=== PATIENT | female | born 1965 | race Caucasian/White ===

== ENCOUNTER 2017-05-09 12:19 | Observation (INO) ==
--- NOTE | 2017-05-09 13:29 | Emergency Department Note ---
Disposition Clinical Impression: Acute cholecystitis Disposition: Admitted As Inpatient Condition: Good Referrals: Yousif Dudley MD [Primary Care Provider] - Forms: Work/School Release, ED Satisfaction Letter Abdominal Pain HPI - General Chief Complaint: ED Abdominal Pain Stated Complaint: RUQ Pain seen at [facility] yesterday Time Seen by Provider: 05/09/17 13:06 Source: patient Nursing Notes Reviewed: Yes Vital Signs Reviewed: Yes - History of Present Illness Pt Subjective Complaint: abdominal pain Onset (ago): day(s) (2) Consistency: constant Location: RUQ Pain Scale: 8 Quality: stabbing, sharp Radiation: none Migration to: no migration Improves with: nothing Worsens with: nothing Associated symptoms: Reports: nausea, vomiting. Denies: fever Treatments prior to arrival: prescription analgesics - Related Data Previous Rx's Medication Instructions Recorded HYDROcodone/Acet 5/325 mg [[place] 1 tab PO Q6H PRN #5 tab 05/08/17 5-325 mg] Ondansetron [Zofran ODT] 8 mg SL Q4HR PRN #10 tab.rapdis 05/08/17 Allergies Allergy/AdvReac Type Severity Reaction Status Date / Time No Known Allergies Allergy Verified 05/08/17 13:48 All systems ED: reviewed and negative except as stated. Constitutional: Denies: chills Gastrointestinal: Reports: nausea, vomiting. Denies: hematochezia Abdominal Pain PMH - Past Medical History Medical history: Reports: no medical history Female Surgical History: Reports: hysterectomy Psychiatric history: Reports: no psych history - Social History Smoking status: Current every day smoker Alcohol use: Reports: none Drug use: Reports: none Physical Exam - General Limitations: no limitations General appearance: alert - Head Head exam: atraumatic, normocephalic, normal inspection - Eye Eye exam: Present: normal appearance, PERRL, EOMI - Expanded Eye Exam Pupils: Left: reactive - ENT ENT exam: normal exam, normal oropharynx, mucous membranes moist - Expanded ENT Exam External ear exam: Present: normal external inspection Mouth exam: Present: normal external inspection Teeth exam: Present: normal inspection Throat exam: Present: normal inspection - Neck Neck exam: Present: normal inspection, full ROM, trachea midline - Chest Chest inspection: Present: normal inspection, symmetric chest wall rise - Respiratory Respiratory exam: Present: normal lung sounds bilaterally - Cardiovascular Cardiovascular exam: Present: regular rate, normal rhythm, normal heart sounds - Abdominal Exam Abdominal exam: Present: soft, normal bowel sounds. Absent: distention Abdominal tenderness: Present: RUQ, moderate - Extremities Exam Extremities exam: Present: normal inspection, full ROM. Absent: tenderness, pedal edema - Expanded Upper Extremity Exam Shoulder exam: Present: normal inspection, full ROM Arm exam: Present: normal inspection, full ROM Elbow exam: Present: normal inspection, full ROM Forearm/Wrist exam: Present: normal inspection, full ROM Hand exam: Present: normal inspection, full ROM Vascular exam: Normal: capillary refill, radial pulse - Expanded Lower Extremity Exam Hip/Pelvis exam: Present: normal inspection, full ROM Upper leg exam: Present: normal inspection, full ROM Knee exam: Present: normal inspection, full ROM Lower leg exam: Present: normal inspection, full ROM Ankle exam: Present: normal inspection, full ROM Foot/toe exam: Present: normal inspection, full ROM Neurovascular/Tendon exam: Absent: motor deficit, sensory deficit, tendon deficit - Back Exam Back exam: Present: normal inspection, full ROM. Absent: tenderness - Neurological Exam Neurological exam: Present: alert, oriented X3 - Expanded Neurological Exam Patient oriented to: Present: person, place, time Coma Scale Eye Opening: Spontaneous Coma Scale Motor Response: Obeys Commands Coma Scale Verbal Response: Oriented Coma Scale Total: 15 - Psychiatric Psychiatric exam: Present: normal affect, normal mood - Skin Skin exam: Present: warm, dry, intact, normal color Course Vital Signs Temperature 98.2 F 05/09/17 12:45 Pulse Rate 92 05/09/17 12:45 Respiratory Rate 18 05/09/17 12:45 Blood Pressure 144/78 05/09/17 12:45 O2 Sat by Pulse Oximetry 96 05/09/17 12:45 Temperature 98.2 F 05/09/17 12:45 Pulse Rate 95 05/09/17 14:35 Respiratory Rate 18 05/09/17 14:35 Blood Pressure 155/74 05/09/17 14:35 O2 Sat by Pulse Oximetry 98 05/09/17 14:35 Oxygen Delivery Oxygen Delivery Room Air Abdominal Pain - Differential Diagnosis Differential Diagnosis: Likely: acute appendicitis, calculus of kidney, diverticulitis - Lab Data Result diagrams: 05/09/17 13:46 05/09/17 13:46 Lab Results 05/09/17 05/09/17 05/09/17 Range/Units 13:25 13:46 13:46 WBC 22.6 H D (4.3-11.1) K/mcL RBC 4.96 (3.82-4.97) M/mcL Hgb 15.3 (11.5-15.4) g/dL Hct 44.0 (35.3-44.9) % MCV 88.7 (83.0-100.0) fL MCH 30.8 (28.0-33.3) pg MCHC 34.8 (31.6-35.5) g/dL RDW 12.9 (11.5-14.5) % Plt Count 284 (140-400) K/mcL MPV 10.0 (9.4-12.4) fL Immature Gran % 0.4 (0-4) % Seg Neutrophils % 88.5 % Lymphocytes % 4.8 % Monocytes % 6.2 % Eosinophils % 0.0 % Basophils % 0.1 % Neutrophils # 20.0 H (1.6-8.9) K/mcL Lymphocytes # 1.1 (0.6-4.6) K/mcL Monocytes # 1.4 H (0.0-1.3) K/mcL Eosinophils # 0.0 (0.0-0.6) K/mcL Basophils # 0.0 (0.0-0.2) K/mcL PT 12.6 H (9.4-12.1) Seconds INR 1.2 APTT 28.2 (26.0-36.0) Seconds Sodium (136-145) mEq/L Potassium (3.5-4.5) mEq/L Chloride (98-109) mEq/L Carbon Dioxide (19-29) mEq/L BUN (7-20) mg/dL Creatinine (0.57-1.11) mg/dL Est GFR ( Amer) (> 60) Est GFR (Non-Af Amer) (> 60) BUN/Creatinine Ratio (6-26) Glucose (70-99) mg/dL Calculated Osmolality (280-300) Lactic Acid (0.5-2.2) mmol/L Calcium (8.6-10.8) mg/dL Total Bilirubin (0.2-1.2) mg/dL Direct Bilirubin (0.0-0.5) mg/dL Indirect Bilirubin (0.0-1.2) mg/dL AST (5-34) Units/L ALT (0-55) Units/L Alkaline Phosphatase (38-126) Units/L Serum Total Protein (6.0-8.3) g/dL Albumin (3.5-5.0) g/dL Globulin (2.4-3.5) g/dL Albumin/Globulin Ratio (1.1-2.2) Amylase (25-125) Units/L Lipase (8-78) Units/L Urine Color Yellow (Yellow) Urine Clarity Clear (Clear) Urine pH 6.5 (5.0-8.0) pH Units Ur Specific [place] 1.024 (1.010-1.025) Urine Protein 30 H (Neg-Trace) mg/dL Urine Glucose (UA) 100 H (Normal) mg/dL Urine Ketones 40 H (Negative) mg/dL Urine Blood Small H (Negative) Urine Nitrite Negative (Negative) Urine Bilirubin Negative (Negative) Urine Urobilinogen Normal (Normal) mg/dL Ur Leukocyte Esterase Negative (Negative) Urine Microscopic RBC 5-15 H (0-3) per hpf Urine Microscopic WBC 0-3 (0-3) per hpf Ur Squamous Epith Cells Many H (None-Few) per lpf Urine Bacteria Few (None-Few) per hpf Hyaline Casts None Seen (None-Few) per lpf Ur Culture Indicated? NO (NO) 05/09/17 05/09/17 Range/Units 13:46 13:46 WBC (4.3-11.1) K/mcL RBC (3.82-4.97) M/mcL Hgb (11.5-15.4) g/dL Hct (35.3-44.9) % MCV (83.0-100.0) fL MCH (28.0-33.3) pg MCHC (31.6-35.5) g/dL RDW (11.5-14.5) % Plt Count (140-400) K/mcL MPV (9.4-12.4) fL Immature Gran % (0-4) % Seg Neutrophils % % Lymphocytes % % Monocytes % % Eosinophils % % Basophils % % Neutrophils # (1.6-8.9) K/mcL Lymphocytes # (0.6-4.6) K/mcL Monocytes # (0.0-1.3) K/mcL Eosinophils # (0.0-0.6) K/mcL Basophils # (0.0-0.2) K/mcL PT (9.4-12.1) Seconds INR APTT (26.0-36.0) Seconds Sodium 132 L D (136-145) mEq/L Potassium 3.5 (3.5-4.5) mEq/L Chloride 99 (98-109) mEq/L Carbon Dioxide 24 (19-29) mEq/L BUN 9 (7-20) mg/dL Creatinine 0.86 (0.57-1.11) mg/dL Est GFR ( Amer) > 60 (> 60) Est GFR (Non-Af Amer) > 60 (> 60) BUN/Creatinine Ratio 10 (6-26) Glucose 120 H (70-99) mg/dL Calculated Osmolality 274 L (280-300) Lactic Acid 1.4 (0.5-2.2) mmol/L Calcium 9.5 (8.6-10.8) mg/dL Total Bilirubin 0.9 D (0.2-1.2) mg/dL Direct Bilirubin 0.3 (0.0-0.5) mg/dL Indirect Bilirubin 0.6 (0.0-1.2) mg/dL AST 20 (5-34) Units/L ALT 18 (0-55) Units/L Alkaline Phosphatase 101 (38-126) Units/L Serum Total Protein 7.8 (6.0-8.3) g/dL Albumin 3.6 (3.5-5.0) g/dL Globulin 4.2 H (2.4-3.5) g/dL Albumin/Globulin Ratio 0.9 L (1.1-2.2) Amylase 45 (25-125) Units/L Lipase 24 (8-78) Units/L Urine Color (Yellow) Urine Clarity (Clear) Urine pH (5.0-8.0) pH Units Ur Specific [place] (1.010-1.025) Urine Protein (Neg-Trace) mg/dL Urine Glucose (UA) (Normal) mg/dL Urine Ketones (Negative) mg/dL Urine Blood (Negative) Urine Nitrite (Negative) Urine Bilirubin (Negative) Urine Urobilinogen (Normal) mg/dL Ur Leukocyte Esterase (Negative) Urine Microscopic RBC (0-3) per hpf Urine Microscopic WBC (0-3) per hpf Ur Squamous Epith Cells (None-Few) per lpf Urine Bacteria (None-Few) per hpf Hyaline Casts (None-Few) per lpf Ur Culture Indicated? (NO)
[2017-05-09 13:37] LABS: Bilirubin,Urine Negative (Negative); Blood,Urine Small (Negative); Clarity,Urine Clear (Clear); Color,Urine Yellow (Yellow); Glucose,Urine (UA) 100 mg/dL (Normal); Ketones,Urine 40 mg/dL (Negative); Leukocyte Esterase,Urine Negative (Negative); Nitrite,Urine Negative (Negative); PH,Urine 6.5 pH Units (5.0-8.0); Protein,Urine 30 mg/dL (Neg-Trace); Specific Gravity,Urine 1.024 (1.010-1.025); Urobilinogen,Urine Normal (Normal)
[2017-05-09 13:41] LABS: Bacteria,Urine Few per hpf (None-Few); Hyaline Casts,Urine None Seen per lpf (None-Few); Squamous Epithelial Cell,Urine Many per lpf (None-Few); WBC,Urine 0-3 per hpf (0-3)
[2017-05-09] MEDS ORDERED: Ondansetron 4 MG/2 ML VIAL IVP ONE (13:54)
[2017-05-09] MEDS ORDERED: *HR* HYDROmorphone (PF) 1 MG/ML SYRINGE IVP ONE (13:54)
[2017-05-09 13:55] LABS: Basophils % 0.1 %; Hemoglobin 15.3 g/dL (11.5-15.4); Immature Granulocytes % 0.4 % (0-4); Lymphocytes # 1.1 K/mcL (0.6-4.6); Lymphocytes % 4.8 %; Mean Corpuscular HGB Conc 34.8 g/dL (31.6-35.5); Mean Corpuscular Hemoglobin 30.8 pg (28.0-33.3); Mean Corpuscular Volume 88.7 fL (83.0-100.0); Monocytes # 1.4 K/mcL (0.0-1.3); Monocytes % 6.2 %; Platelet Count 284 K/mcL (140-400); Red Blood Count 4.96 M/mcL (3.82-4.97); Red Cell Distribution Width 12.9 % (11.5-14.5); Segmented Neutrophils % 88.5 %
[2017-05-09 13:57] LABS: INR 1.2; Prothrombin Time 12.6 Seconds (9.4-12.1)
[2017-05-09 14:00] LABS: Activated Partial Thrombo Time 28.2 Seconds (26.0-36.0)
[2017-05-09 14:07] LABS: Alanine Aminotransferase 18 Units/L (0-55); Albumin 3.6 g/dL (3.5-5.0); Albumin/Globulin Ratio 0.9 (1.1-2.2); Alkaline Phosphatase 101 Units/L (38-126); Amylase 45 Units/L (25-125); Aspartate Amino Transferase 20 Units/L (5-34); BUN/Creatinine Ratio 10 (6-26); Bilirubin,Direct 0.3 mg/dL (0.0-0.5); Bilirubin,Indirect 0.6 mg/dL (0.0-1.2); Bilirubin,Total 0.9 mg/dL (0.2-1.2); Blood Urea Nitrogen 9 mg/dL (7-20); Calcium 9.5 mg/dL (8.6-10.8); Carbon Dioxide 24 mEq/L (19-29); Chloride 99 mEq/L (98-109); Globulin 4.2 g/dL (2.4-3.5); Glucose 120 mg/dL (70-99); Lipase 24 Units/L (8-78); Osmolality,Calculated 274 (280-300); Potassium 3.5 mEq/L (3.5-4.5); Sodium 132 mEq/L (136-145); Total Protein 7.8 g/dL (6.0-8.3); eGFR For African Americans > 60 (> 60); eGFR For Non-African Americans > 60 (> 60)
[2017-05-09] MEDS ORDERED: Piperacillin/Tazobactam 3.375 GM in D5% in Water (Mini-Bag+) 100 ML IVPB ONE (16:56)
[2017-05-09] MEDS ORDERED: Ondansetron 4 MG/2 ML VIAL IVP PRN (17:05)
[2017-05-09] MEDS: *HR* HYDROmorphone (PF) 1 MG/ML SYRINGE IVP PRN ×2 (17:36→19:44)
[2017-05-10] MEDS: *HR* HYDROmorphone (PF) 1 MG/ML SYRINGE IVP PRN ×3 (00:09→09:11)
[2017-05-10] MEDS: Piperacillin/Tazobactam 3.375 GM in D5% in Water (Mini-Bag+) 100 ML IVPB SCH ×4 (00:16→23:48)
[2017-05-10] MEDS ORDERED: Ringers Solution, Lactated 1,000 ML IVC SCH (06:45)
[2017-05-10] MEDS ORDERED: Albuterol 2.5 MG/3 ML NEBULIZER IH ONE (06:45)
--- NOTE | 2017-05-10 06:45 | General Surg History&Physical ---
Date of Encounter: 05/10/17 Time of Encounter: 06:10 Assessment and Plan (1) Acute cholecystitis Current Visit: Yes Status: Acute Plan for laparoscopic cholecystectomy with cholangiogram. Risks were explained and she agrees to proceed. The assessment and plan as outlined above was discussed with the patient and/or family members who expressed understanding and agreement. All questions were answered. History of Present Illness HPI: Ms. Scott is a 51 year old female with RUQ pain for the last 4 days. She has nausea and vomiting with any meal intake. The pain is sharp and is rated 10/10. It radiates into her back and flank. Past Med Surg Social Fam HX - Past Medical History Medical history: no medical history Psychiatric history: no psych history - Past Surgical History Surgical History: hysterectomy - Social History Smoking Status: Current some day smoker Smokeless Tobacco Status: No Alcohol use: occasionally Drug use: none - Family History Mother Living Status: Age at : 69 Cause of : Heart attack Hx Family Cardiac Disorders: Yes Hx Family Respiratory Disorders: Yes (COPD) Hx Family Cancer: No Hx Family GI Disorders: No Hx Family Genitourinary Disorders: Yes (Kidney defect) Hx Family Endocrine Disorder: No Hx Family Musculoskeletal Disorders: Yes ([place]) Hx Family Neuromuscular Disorders: No Hx Family Neurologic Disorders: No Hx Family HEENT Disorders: No Hx Family Autoimmune Disorders: No Hx Family Reproductive Disorders: No Hx Family Psychosocial Disorders: No Hx Family Medical Disorders: No Medications and Allergies HYDROcodone/Acet 5/325 mg [[place] 5-325 mg] 1 tab PO Q6H PRN #5 tab 05/08/17 [Rx] Ondansetron [Zofran ODT] 8 mg SL Q4HR PRN #10 tab.rapdis 05/08/17 [Rx] Allergies No Known Allergies Allergy (Verified 05/08/17 13:48) Review of Systems All systems PM: reviewed and no additional remarkable complaints except as stated All systems PM: A 10-system review of systems was performed and is negative for pertinent findings except as documented above in the HPI. General Surgery Exam Initial Vital Signs Temp Pulse Resp BP Pulse Ox 98.2 F 92 18 144/78 96 05/09/17 12:45 05/09/17 12:45 05/09/17 12:45 05/09/17 12:45 05/09/17 12:45 - Eyes PERRL, normal ocular movement - Respiratory normal respiratory effort, clear to percussion - Cardiovascular Cardiovascular exam: Present: RRR - Abdomen Abdomen general surgery: Present: soft, tender Abdominal Tenderness: Present: RUQ - Integumentary Integumentary general surgery: Present: warm and dry, no abnormal pigmentation - Neurologic Present: CN 2-12 grossly intact, normal sensation - Musculoskeletal Present: normal posture - Psychiatric Psychiatric general surgery: Present: A&Ox3, speech is normal Results - Labs 05/09/17 13:46 05/09/17 13:46 Abnormal lab results WBC 22.6 K/mcL (4.3-11.1) H D 05/09/17 13:46 Neutrophils # 20.0 K/mcL (1.6-8.9) H 05/09/17 13:46 Monocytes # 1.4 K/mcL (0.0-1.3) H 05/09/17 13:46 PT 12.6 Seconds (9.4-12.1) H 05/09/17 13:46 Sodium 132 mEq/L (136-145) L D 05/09/17 13:46 Glucose 120 mg/dL (70-99) H 05/09/17 13:46 POC Glucose 103 (58-89) H 05/10/17 05:22 Calculated Osmolality 274 (280-300) L 05/09/17 13:46 Globulin 4.2 g/dL (2.4-3.5) H 05/09/17 13:46 Albumin/Globulin Ratio 0.9 (1.1-2.2) L 05/09/17 13:46 Urine Protein 30 mg/dL (Neg-Trace) H 05/09/17 13:25 Urine Glucose (UA) 100 mg/dL (Normal) H 05/09/17 13:25 Urine Ketones 40 mg/dL (Negative) H 05/09/17 13:25 Urine Blood Small (Negative) H 05/09/17 13:25 Urine Microscopic RBC 5-15 per hpf (0-3) H 05/09/17 13:25 Ur Squamous Epith Cells Many per lpf (None-Few) H 05/09/17 13:25 All other labs normal. - Imaging CT scan - abdomen: image reviewed CT scan - pelvis: image reviewed
[2017-05-10] MEDS ORDERED: Famotidine 20 MG/2 ML VIAL ONE (06:48)
[2017-05-10] MEDS ORDERED: Acetaminophen IV 1,000 MG/100 ML INFUS..BTL ONE (06:48)
[2017-05-10] MEDS ORDERED: Ondansetron 4 MG/2 ML VIAL ONE (06:51)
[2017-05-10] MEDS ORDERED: *HR* Rocuronium Bromide 50 MG/5 ML VIAL ONE (06:51)
[2017-05-10] MEDS ORDERED: Lidocaine -MPF 4% 5 ML AMPUL ONE (06:51)
[2017-05-10] MEDS ORDERED: *HR* Propofol 200 MG/20 ML VIAL IVP ONE (06:51)
[2017-05-10] MEDS ORDERED: *HR* FentaNYL (PF) 100 MCG/2 ML VIAL ONE (06:51)
[2017-05-10] MEDS ORDERED: Lidocaine -MPF 2% 2 ML VIAL ONE (06:51)
[2017-05-10] MEDS ORDERED: Dexamethasone 4 MG/ML VIAL ONE (06:51)
--- NOTE | 2017-05-10 07:01 | Anesthesia Evaluation PreOp ---
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 Other Medical History: Denies Any Significant HX Anesthesia History: No Prior Anesthetic Complications : No (Hysterectomy) Alcohol Use: none, occasionally Drug use: none Medications and Allergies HYDROcodone/Acet 5/325 mg [[place] 5-325 mg] 1 tab PO Q6H PRN #5 tab 05/08/17 [Rx] Ondansetron [Zofran ODT] 8 mg SL Q4HR PRN #10 tab.rapdis 05/08/17 [Rx] Allergies No Known Allergies Allergy (Verified 05/08/17 13:48) - Meds/Allergy Pre-op Review Medications Reviewed: Yes Allergies Reviewed: Yes Beta Blockers on Current Med List: No Anesthesia Results - Labs 05/09/17 13:46 05/09/17 13:46 Anesthesia Exam O2 Sat Height 1.68 m Weight 75.296 kg Weight 76.385 kg O2 Sat by Pulse Oximetry 95 O2 Sat by Pulse Oximetry 94 O2 Sat by Pulse Oximetry 96 O2 Sat by Pulse Oximetry 98 O2 Sat by Pulse Oximetry 96 Vital Signs Temp Pulse Resp BP Pulse Ox 98.2 F 92 18 144/78 96 05/09/17 12:45 05/09/17 12:45 05/09/17 12:45 05/09/17 12:45 05/09/17 12:45 Height: 5'6 Weight: 166 lbs NPO (# of Hours): MN Pain Scale: 1 - HEENT Pupil (Motor): Pupils equal, EOMI Mallampati: II Teeth: Normal Oral Opening: Greater than 3 - TELEVISION INSTALLER LOC: Oriented TELEVISION INSTALLER Motor: Normal RUE, Normal LUE, Normal RLE, Normal LLE, Normal Face TELEVISION INSTALLER Sensory: Normal: RUE, LUE, RLE, LLE, Face - Cardiac Rhythm: Regular Murmur: None JVD: No Carotid Bruit: No - Pulmonary Breath Sounds: bilateral Clear Respiratory Effort: Symmetrical Anesthesia Assess/Plan ASA Score: 2 Modified Ana Scale for Level of Consciousness: Cooperative, oriented, and tranquil Anesthetic Plan: General Monitoring Plan: Standard Monitors Recovery Plan: PACU (Discussed GA, agrees to proceed)
[2017-05-10] MEDS ORDERED: *HR* Phenylephrine 10 MG/ML VIAL ONE (07:16)
[2017-05-10] MEDS ORDERED: Ketorolac 30 MG/ML VIAL ONE (07:47)
[2017-05-10] MEDS ORDERED: Neostigmine Methylsulfate 3 MG/3 ML SYRINGE ONE (07:48)
[2017-05-10] MEDS ORDERED: *HR* Morphine 10 MG/ML VIAL ONE (07:58)
[2017-05-10] MEDS ORDERED: Ondansetron 4 MG/2 ML VIAL IVP ONE (08:18)
[2017-05-10] MEDS ORDERED: *HR* Promethazine 25 MG/ML VIAL IVP PRN (08:18)
--- NOTE | 2017-05-10 08:36 | Anesthesia Evaluation Post Op ---
Date of Encounter: 05/10/17 Time of Encounter: 08:36 - Vital Signs Vital Signs: Vital Signs/O2 Sat, Most Current Temp Pulse Resp BP Pulse Ox 98.1 F 82 13 159/82 94 05/10/17 08:12 05/10/17 08:32 05/10/17 08:32 05/10/17 08:32 05/10/17 08:32 - Lungs Lungs: Clear Ascult./Percussion - Airway Airway: Non-obstructed - Cardiovascular Regular Rate - Mental Status Mental Status: Asleep with brisk response to light stimulation - Pain Pain Scale: 3 Pain Scale used: Numeric (1 - 10) - Nausea Vomiting Nausea Vomiting: Not Present - Hydration Hydration: Ice chips, Has not voided - Discharge PostOp Status: Transfer Patient to floor
[2017-05-10] MEDS ORDERED: *HR* OxyCODONE/APAP 5/325 TABLET PO PRN (10:45)
[2017-05-10] MEDS ORDERED: *HR* HYDROmorphone (PF) 1 MG/ML SYRINGE IVP PRN (10:50)
[2017-05-10] MEDS: Ketorolac 15 MG/ML VIAL IVP SCH ×3 (11:54→23:47)
[2017-05-11] MEDS: Ketorolac 15 MG/ML VIAL IVP SCH ×2 (05:47→14:02)
[2017-05-11 07:02] LABS: Basophils % 0.1 %; Eosinophils % 0.1 %; Hematocrit 36.7 % (35.3-44.9); Immature Granulocytes % 0.4 % (0-4); Immature Platelets 3.7 % (1.1-6.1); Lymphocytes # 1.5 K/mcL (0.6-4.6); Mean Corpuscular HGB Conc 34.3 g/dL (31.6-35.5); Mean Corpuscular Hemoglobin 30.7 pg (28.0-33.3); Mean Corpuscular Volume 89.5 fL (83.0-100.0); Mean Platelet Volume 10.5 fL (9.4-12.4); Monocytes # 1.2 K/mcL (0.0-1.3); Monocytes % 6.7 %; Neutrophils # 15.3 K/mcL (1.6-8.9); Platelet Count 225 K/mcL (140-400); Red Cell Distribution Width 13.2 % (11.5-14.5); Segmented Neutrophils % 84.7 %
[2017-05-11 07:03] LABS: Hemoglobin 12.6 g/dL (11.5-15.4)
[2017-05-11 07:14] LABS: Alanine Aminotransferase 36 Units/L (0-55); Albumin/Globulin Ratio 0.7 (1.1-2.2); Alkaline Phosphatase 100 Units/L (38-126); Aspartate Amino Transferase 47 Units/L (5-34); BUN/Creatinine Ratio 14 (6-26); Bilirubin,Total 1.3 mg/dL (0.2-1.2); Blood Urea Nitrogen 13 mg/dL (7-20); Carbon Dioxide 28 mEq/L (19-29); Chloride 100 mEq/L (98-109); Globulin 3.9 g/dL (2.4-3.5); Glucose 89 mg/dL (70-99); Osmolality,Calculated 280 (280-300); Potassium 3.3 mEq/L (3.5-4.5); Sodium 135 mEq/L (136-145); Total Protein 6.5 g/dL (6.0-8.3); eGFR For African Americans > 60 (> 60); eGFR For Non-African Americans > 60 (> 60)
[2017-05-11 07:33] LABS: Albumin 2.6 g/dL (3.5-5.0)
[2017-05-11] MEDS: Piperacillin/Tazobactam 3.375 GM in D5% in Water (Mini-Bag+) 100 ML IVPB SCH (09:01)
--- NOTE | 2017-05-11 09:07 | Discharge Summary ---
Date of Encounter: 05/11/17 Time of Encounter: 09:00 - Discharge Diagnosis (1) Acute cholecystitis Priority: Primary Status: Acute - Discharge Medications Prescriptions: OxyCODONE/APAP 5/325 [Percocet 5/325 MG] 1 each PO Q4HR PRN #30 tablet PRN Reason: Moderate Pain Ibuprofen [Motrin] 800 mg PO Q8HR #50 tablet Docusate [Colace] 100 mg PO BID #30 capsule Home Medications: Ondansetron [Zofran ODT] 8 mg SL Q4HR PRN #10 tab.rapdis 05/08/17 [Rx] Docusate [Colace] 100 mg PO BID #30 capsule 05/11/17 [Rx] Ibuprofen [Motrin] 800 mg PO Q8HR #50 tablet 05/11/17 [Rx] OxyCODONE/APAP 5/325 [Percocet 5/325 MG] 1 each PO Q4HR PRN #30 tablet 05/11/17 [Rx] Allergies/Adverse Reactions: Allergies No Known Allergies Allergy (Verified 05/08/17 13:48) General Surgery Exam Initial Vital Signs Temp Pulse Resp BP Pulse Ox 98.2 F 92 18 144/78 96 05/09/17 12:45 05/09/17 12:45 05/09/17 12:45 05/09/17 12:45 05/09/17 12:45 - General physical appearance well developed, well nourished, no distress - Eyes normal ocular movement - ENT normal mucosa, atraumatic, normocephalic - Neck trachea midline - Respiratory normal respiratory effort, clear to auscultation - Cardiovascular Cardiovascular exam: Present: RRR, 15, 16 - Abdomen Abdomen general surgery: Present: bowel sounds present, soft, tender (Expected postoperative tenderness), wound (ASH drain to bulb suction with serosanguineous drainage noted) - Incision Incision: Present: clean and dry, intact - Integumentary Integumentary general surgery: Present: warm and dry - Neurologic Present: CN 2-12 grossly intact - Musculoskeletal Present: normal gait, normal posture - Psychiatric Psychiatric general surgery: Present: appropriate, oriented to person, oriented to place, oriented to time, speech is normal, memory intact Date of admission: 05/09/17 17:10 Primary care physician: Yousif Dudley MD Discharging clinician: Fernando Martinez [facility]) Anticipated date of discharge: 05/11/17 - Patient Status Disposition: Home, Self-Care Condition: Good Overall status at discharge: patient is progressing back to baseline - Discharge Instructions Follow Up With: Janelle Pedraza CNP [Advanced Practice Nurse] - 05/17/17 11:30 am (surgery follow-up; drain check) Forms: Work/School Release Additional Instructions: #1 may shower, no tub bath for 2 weeks #2 wash incisions with soap and water and pat dry daily #3 no lifting, pushing, pulling more than 15 pounds for the next 2 weeks #4 no driving until off narcotics for 24 hours and able to safely react in the car #5 may climb stairs ASH drain care- Cleanse around drain was soap and water and pat dry daily. Empty drain 2 times daily and as needed. Record outputs and bring to follow-up appointment on 05/17/2017. - Diet and Activity Diet: advance to your usual diet - Hospital Course Hospital course: Ms. Scott is a 51 year old female presented to the hospital with abdominal discomfort. She was found to have acute cholecystitis. She was started on IV antibiotic therapy and taken to the operating room for a laparoscopic cholecystectomy with cholangiogram with Dr. Arceo. She did have a drain placed during surgery due to significant inflammation and necrotic gallbladder. She was continued on IV antibiotic therapy. On postoperative day #1, she is tolerating regular diet without nausea or vomiting, vital signs are stable and afebrile, pain is well-controlled, she is voiding and a medially without difficulty. We will begin discharge planning for outpatient follow-up in the next 7-10 days. - Time Spent with Patient Total time spent providing and/or coordinating discharge services: Less than 30 minutes Labs on day of discharge: Labs from last 24 hours 05/11/17 05/11/17 05/11/17 06:32 06:32 05:40 WBC 18.1 H RBC 4.10 Hgb 12.6 D Hct 36.7 MCV 89.5 MCH 30.7 MCHC 34.3 RDW 13.2 Plt Count 225 MPV 10.5 Immature Gran % 0.4 Seg Neutrophils % 84.7 Lymphocytes % 8.0 Monocytes % 6.7 Eosinophils % 0.1 Basophils % 0.1 Neutrophils # 15.3 H Lymphocytes # 1.5 Monocytes # 1.2 Eosinophils # 0.0 Basophils # 0.0 Immature Plt Fraction 3.7 Sodium 135 L Potassium 3.3 L Chloride 100 Carbon Dioxide 28 BUN 13 Creatinine 0.93 Est GFR ( Amer) > 60 Est GFR (Non-Af Amer) > 60 BUN/Creatinine Ratio 14 Glucose 89 POC Glucose 95 H Calculated Osmolality 280 Calcium 9.0 Total Bilirubin 1.3 H AST 47 H ALT 36 Alkaline Phosphatase 100 Serum Total Protein 6.5 Albumin 2.6 L D Globulin 3.9 H Albumin/Globulin Ratio 0.7 L - Impressions ITS Impressions Cholangiogram,Operative 05/10/17 06:56 IMPRESSION: No evidence of choledocholithiasis on intraoperative cholangiogram. D/ / Miller Soria MD / Miller Soria MD Interpreting Provider: Miller Soria MD - Attending Attestation I examined this patient and my medical decision-making was reviewed with the SPEECH THERAPY DIRECTOR/PA/Advanced Practice Nurse/Resident Physician. I agree with the documented findings, disposition and treatment plan as described except to the extent set forth below.
[2017-05-11 11:34] VITALS: BP 111/56
--- NOTE | 2017-05-17 10:38 | Operative Note ---
Date of procedure: 05/10/17 Pre-op diagnosis: Acute cholecystitis Post-op diagnosis: same Procedure: Laparoscopic cholecystectomy with cholangiogram Anesthesia: WALDEMAR Surgeon: Fernando Arceo Estimated blood loss (cc): 5 Condition: stable Disposition: same day Procedure in Detail: After informed consent this patient was taken the operating room placed supine position. After adequate sedation anesthesia the abdomen was prepped and draped. A proper timeout was performed. Two towel clamps are placed at the umbilicus and a Veres needle was inserted into the abdomen. A 5 mm incision was made at the umbilicus. A 12 mm incision was made in the subxiphoid region. Two 5 mm incisions were made in the right upper quadrant that were 4 finger breadths and 6 finger breadths below the costal margin. The gallbladder was identified, retracted anteriorly and cephalad, and the infundibulum was skeletonized. The cystic duct was easily identified and was dissected free. A ductotomy was created in the cystic duct. A taut catheter was placed within the cystic duct and clipped. A cholangiogram was performed. Contrast filled the cystic duct, common hepatic duct, hepatic radicles, and the distal common bile duct. There was flow of contrast into the duodenum. Once this was confirmed the clippers removed, the taut catheter was removed as well, and the cystic duct was clipped distally. The cystic duct was then transected with scissors. The gallbladder was resected off the liver surface. There was excellent hemostasis. The gallbladder was then retrieved through the 12 mm cannula site. At this point the abdomen was suctioned dry and the pneumoperitoneum was then evacuated. All ports were removed. The 12 mm cannula site was closed with an 0 Vicryl suture in [id number] fashion. The skin was closed with 4-0 Vicryl suture. Dermabond was placed as well. All instrument counts and needle counts are correct in the operation. She tolerated the procedure well and was transferred to the PACU in stable condition.
== END 2017-05-11 15:10 | disposition home or self-care (01) ==
LOC: 3ANU 12:19 → EMEROO 12:19 → 3ANU 18:03
PROVIDERS: ADMIT Surgery; ATTEND Surgery